=== PATIENT | female | born 1990 | race Caucasian/White ===

== ENCOUNTER 2016-08-21 03:50 | Emergency (ER) | payer OTHER ==
[~2016-08-21] VITALS: Ht 157.5 cm; Wt 61.2 kg
[2016-08-21] MEDS ORDERED: CYCL10TA PO (05:19)
[2016-08-21] MEDS ORDERED: NORC1TAB4 PO (05:19)
[2016-08-21] MEDS ORDERED: NAPR500T2 PO (05:19)
[2016-08-21 05:23] VITALS: BP 111/70
[2016-08-21] MEDS ORDERED: CYCLOBENZAPRINE 10 MG TAB PO ONE (05:30)
[2016-08-21] MEDS ORDERED: NORCO, ANEXSIA 5/325MG TABLET (HYDROcodone/ACETAMINOPHEN) PO ONE (05:30)
[2016-08-21] MEDS ORDERED: NAPROXEN 250 MG TAB PO ONE (05:30)
== END 2016-08-21 05:47 | disposition home or self-care (01) ==
LOC: M ED 05:45
DX: M54.41 Lumbago with sciatica, right side (principal)